=== PATIENT | female | born 1995 | race American Indian/Alaskan Native ===

== ENCOUNTER 2018-03-21 18:09 | Inpatient (IN) | payer MEDICAID ==
[2018-03-21] MEDS ORDERED: POLYCILLIN/NS 2 GM/100 ML 2 GM/100 ML BAG IV ONE (21:20)
[2018-03-21] MEDS ORDERED: SUBLIMAZE IV PRN ×2 (21:20→22:19)
[2018-03-21] MEDS ORDERED: STADOL IV PRN ×2 (21:20→22:19)
[2018-03-21] MEDS ORDERED: CERVIDIL VG ONE (21:27)
[2018-03-21 21:49] LABS: Hematocrit 37.1 % (30.3-42.9); Hemoglobin 11.7 gm/dl (10.1-14.3); Mean Corpuscular HGB Conc 32 % (30-34); Mean Corpuscular Volume 83 fl (79-97); Platelet Count 195 K/mm3 (140-440); Red Blood Count 4.49 M/mm3 (3.65-5.03); Red Cell Distribution Width 16.2 % (13.2-15.2)
[2018-03-21 21:50] LABS: Mean Corpuscular Hemoglobin 26 pg (28-32)
[2018-03-21] MEDS ORDERED: LACTATED RINGERS 1,000 ML IV SCH ×2 (22:00→23:00)
[2018-03-21] MEDS ORDERED: AMBIEN ONE (22:04)
[2018-03-21] MEDS ORDERED: AMBIEN PO PRN (22:06)
[2018-03-21] MEDS ORDERED: NARCAN 0.4 MG/1 ML IV PRN (22:19)
[2018-03-21] MEDS ORDERED: MINERAL OIL PO PRN (22:19)
[2018-03-21] MEDS ORDERED: XYLOCAINE 2% INFILTRATI ONE (22:19)
[2018-03-21] MEDS ORDERED: BRETHINE IVP PRN (22:19)
[2018-03-21] MEDS ORDERED: ePHEDrine SULFATE IV PRN (22:19)
[2018-03-21] MEDS ORDERED: BRETHINE SUB-Q PRN (22:19)
[2018-03-21] MEDS ORDERED: ZOFRAN IV PRN (22:19)
[2018-03-21] MEDS ORDERED: PITOCin/NS 20 UNIT/1000ML DRIP 20 UNITS/1,000 ML BAG IV SCH (23:00)
[2018-03-22] MEDS ORDERED: AMPICILLIN/NS 1 GM/50 ML 1 GM/50 ML BAG IV SCH (02:00)
--- NOTE | 2018-03-22 08:28 | History and Physical Report ---
History of Present Illness Date of examination: 03/22/18 Date of admission: 03/21/18 18:40 Chief complaint: sent from the office for induction History of present illness: Pt is a 22 year old AUSTEN 03/17/18 at 40w5d who presented for induction of labor on 03/21/18 secondary to oligohydramnios. She denies vaginal bleeding or leakage of fluid. She has care at [facility] since transfer into care at 23 weeks complicated by morbid obesity, anxiety, insomnia , gonorrhea treated with negative test of cure, limited anatomy scan with normal follow up scan, and GBS positive status. 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: gonorrhea (this , treated with negative test of cure ) Family/Genetic History: diabetes, heart disease, hypertension Social history: no significant social history - Obstetrical History Expected Date of Delivery: 03/17/18 Actual Gestation: 40 Week(s) 6 Day(s) : 2 Para: 0 Hx # Term Pregnancies: 0 Number of Pregnancies: 0 Spontaneous Abortions: 0 Induced : 1 Number of Living Children: 0 Medications and Allergies Allergies Allergy/AdvReac Type Severity Reaction Status Date / Time No Known Allergies Allergy Unverified 03/21/18 19:40 Home Medications Medication Instructions Recorded Confirmed Last Taken Type Plus Tablet 1 tab PO DAILY 03/22/18 03/22/18 03/19/18 11:00 History Active Meds: Active Medications Butorphanol Tartrate (Stadol) 2 mg IV Q2H PRN PRN Reason: Pain , Severe (7-10) Ephedrine Sulfate (Ephedrine Sulfate) 10 mg IV Q2M PRN PRN Reason: Hypotension Fentanyl (Sublimaze) 100 mcg IV Q2H PRN PRN Reason: Labor Pain Fentanyl (Sublimaze) 100 mcg IV Q2H PRN PRN Reason: Labor Pain Lactated Ringer's (Lactated Ringers) 1,000 mls @ 125 mls/hr IV DIRECT MICH Ampicillin Sodium (Ampicillin/Ns 1 Gm/50 Ml) 1 gm in 50 mls @ 100 mls/hr IV Q4HR MICH; Protocol Oxytocin/Sodium Chloride (Pitocin/Ns 20 Unit/1000ml Drip) 20 units in 1,000 mls @ 125 mls/hr IV DIRECT MICH Oxytocin/Sodium Chloride (Pitocin/Ns 30 Unit/500ml) 30 units in 500 mls @ 4 mls /hr IV TITR MICH; Protocol Mineral Oil (Mineral Oil) 30 ml PO QHS PRN PRN Reason: Constipation Naloxone HCl (Narcan 0.4 Mg/1 Ml) 0.1 mg IV Q2MIN PRN PRN Reason: Res Rate </= 8 or 02 SAT < 92% Ondansetron HCl (Zofran) 4 mg IV Q8H PRN PRN Reason: Nausea And Vomiting Terbutaline Sulfate (Brethine) 0.25 mg SUB-Q ONCE PRN PRN Reason: Hyperstimulation/Hypertonicity Terbutaline Sulfate (Brethine) 0.25 mg IVP ONCE PRN PRN Reason: Hyperstimulation/Hypertonicity Zolpidem Tartrate (Ambien) 10 mg PO QHS PRN PRN Reason: Insomnia Review of Systems All systems: negative - Vital Signs Vital signs: Vital Signs Pulse BP 89 125/60 03/21/18 19:57 03/21/18 19:57 Temp Pulse Resp BP Pulse Ox 97.6 F 89 18 87/49 03/22/18 07:42 03/22/18 07:46 03/22/18 07:42 03/22/18 07:46 - Physical Exam Breasts: Positive: deferred Cardiovascular: Regular rate Lungs: Positive: Clear to auscultation Abdomen: Positive: soft (obese, gravid ) Genitourinary (Female): Positive: normal external genitalia Uterus: Positive: enlarged (gravid ) Extremities: Positive: normal - Obstetrical FHR: category 2 Uterine Contraction Monitor Mode: External Cervical Dilatation: 0.5 Cervical Effacement Percentage: 30 station: -3 Uterine Contraction Pattern: Absent Uterine Tone Measurement Phase: Resting Results Result Diagrams: 03/21/18 20:25 Abnormal lab results 03/21/18 Range/Units 20:25 MCH 26 L (28-32) pg RDW 16.2 H (13.2-15.2) % All other labs normal. Assessment and Plan A: IUP at 40w5d Oligohydramnios Morbid Obesity GBS positive status P: Admit to labor and delivery for induction of labor. GBS prophylaxis Routine intrapartum care
[2018-03-22] MEDS: PITOCin/NS 30 UNIT/500ML 30 UNITS/500 ML BAG IV SCH ×7 (12:09→23:28)
[2018-03-22] MEDS ORDERED: POLYCILLIN/NS 2 GM/100 ML 2 GM/100 ML BAG IV ONE (17:58)
--- NOTE | 2018-03-22 23:45 | Event Note ---
Date: 03/22/18 Pt uncomfortable. FHTs with non-recurrent lates. SVE: /3. Pause pitocin for 30 minutes then restart. If FHT show intolerance to labor remote from delivery, plan to proceed with section.
[2018-03-23] MEDS: PITOCin/NS 30 UNIT/500ML 30 UNITS/500 ML BAG IV SCH ×2 (00:14→00:36)
[2018-03-23] MEDS ORDERED: REGLAN IV ONE (00:55)
[2018-03-23] MEDS ORDERED: BICITRA PO ONE (00:55)
[2018-03-23] MEDS ORDERED: PEPCID IV ONE (00:55)
--- NOTE | 2018-03-23 00:56 | Event Note ---
Date: 03/23/18 Pitocin restarted and pt continues to have late decelerations on FHTs remote from delivery. Decision to proceed with primary section.
[2018-03-23] MEDS ORDERED: NEO SYNEPHRINE/NS Syringe(OR USE) IV ONE (01:00)
[2018-03-23] MEDS ORDERED: ANCEF/STERILE WATER 2 GM/20 ML 2 GM/20 ML SYRINGE IV NR (01:00)
[2018-03-23] MEDS ORDERED: LACTATED RINGERS 1,000 ML IV SCH (01:00)
[2018-03-23] MEDS ORDERED: REGLAN ONE (01:00)
[2018-03-23] MEDS ORDERED: PITOCin/NS 20 UNIT/1000ML DRIP 20 UNITS/1,000 ML BAG IV SCH ×2 (01:00→06:43)
[2018-03-23] MEDS ORDERED: ZOFRAN IV PRN ×2 (01:14→06:43)
[2018-03-23] MEDS ORDERED: NARCAN 0.4 MG/1 ML IV PRN ×2 (01:14→06:43)
[2018-03-23] MEDS ORDERED: SUBLIMAZE ONE (01:26)
[2018-03-23] MEDS ORDERED: WATER FOR IRRIG STERILE IR ONE (01:30)
[2018-03-23] MEDS ORDERED: NACL 0.9% IR ONE (01:30)
[2018-03-23] MEDS ORDERED: SODIUM CHLORIDE FLUSH SYRINGE 10 ML IV NR ×2 (02:00→06:43)
--- NOTE | 2018-03-23 02:59 | Procedure Note ---
OB Delivery Note - Delivery Date of Delivery: 03/23/18 Surgeon: CHAD ROBLERO Estimated blood loss: other (700 mL) - Section Preop diagnosis: nonreassuring FHR tracing Postop diagnosis: same section procedure: section, primary low transverse Disposition: PACU Complications: none Narrative: Please see operative report. - A at 1 minute: 8 at 5 minutes: 9 Gender: Male (3568g (7lb 14 oz) @ 0214 am)
--- NOTE | 2018-03-23 03:04 | Operative Report ---
Operative Report Operative Report: Date of procedure: March 23, 2018 Preoperative diagnosis: 1) IUP at 40w6d 2) Nonreassuring status- repetitive lates 3) Oligohydrmanios 4) Morbid Obesity BMI 49 Postoperative diagnosis: Same Procedure: Primary low transverse section Surgeon: Stacy Dominguez M.D. Anesthesia: Spinal Findings: 1) Viable male , Apgars 8 and 9, weight 3568g, (7 lb 14 oz) in cephalic presentation. Nuchal cord x 1. Thick meconium 2) Normal-appearing uterus ovaries and tubes Estimated blood loss: 700 mL IV fluids: 1200 mL Urine output: 10 mL, clear at the end of the procedure Drains: Richardson to gravity Complications: None Disposition: Stable to PACU Indication for procedure: Pt is a 22 year old female at 40w6d admitted for induction of labor secondary to oligohydramnios who had virtually no cervical change and repetitive lates on the tracing. The decision was made to proceed with section. Operation in detail: After the risks, benefits, alternatives and complications were explained to the patient she gave informed consent for the procedure. She was subsequently taken to the operating room where spinal anesthesia was noted to be adequate. She was subsequently placed in the dorsal supine position with leftward tilt and prepped and draped in a normal sterile fashion. heart tones were noted to be in the 135s prior to incision. A timeout was performed. A Pfannenstiel skin incision was made with the knife and carried down to the layer of the fascia with the Bovie. The fascia was incised in the midline and the fascial incision was extended bilaterally with the Bovie. Attention was then turned to the superior aspect of the incision which was grasped with two Kochers, tented up, and dissected off the rectus muscles. Attention was then turned to the inferior aspect of the incision which was grasped with two Kochers , tented up and dissected off the rectus muscles. The rectus muscles were then in the midline and partially transected for adequate visualization. The peritoneum was then entered bluntly. The peritoneal incision was extended with good visualization of the bladder. The peritoneal incision was then stretched. An Avelino self-retaining retractor was placed for visualization. The bladder blade was placed. The vesicouterine peritoneum was grasped with smooth pickups and incised with Metzenbaum scissors. Metzenbaum scissors were used to extend the incision bilaterally. The bladder flap was then created digitally and the bladder blade was replaced. A transverse incision was made in the lower uterine segment with a knife and extended bilaterally with the bandage scissors. The head was delivered without difficulty followed by shoulders and body. was bulb suctioned at delivery. The cord was clamped and cut and the was handed to NICU staff in attendance. The placenta was then delivered manually. The uterus was then exteriorized and cleared of all clots and debris. The hysterotomy was then reapproximated with 0 Vicryl in a running locked fashion. A second layer of the same suture was used in imbricating fashion. The hysterotomy was inspected and hemostasis was noted. The Avelino self-retaining retractor was removed. The gutters were irrigated and cleared of all clots and debris. The hysterotomy was again inspected and noted to be hemostatic. Surgicel was placed over the hysterotomy. The peritoneum was reapproximated with 2-0 Vicryl in a running fashion incorporating the rectus muscles. Surgicel was placed over the cut surfaces of the rectus muscles. The fascia was reapproximated with 0 Vicryl in a running fashion. The subcuitaneous tissue was reapproximated with 3-0 Vicryl in a running fashion. The skin was reapproximated with 4-0 Vicryl in a subcuticular fashion. The incision was then covered with steri strips and a pressure dressing. The procedure was then ended. The patient tolerated the procedure well and was taken to the PACU in stable condition. All instrument, lap, and needle counts were correct 3.
[2018-03-23] MEDS: DILAUDID IV PRN ×3 (03:33→04:19)
[2018-03-23] MEDS ORDERED: SUBLIMAZE IV ONE (04:30)
[2018-03-23] MEDS: TORADOL IV PRN ×2 (05:01→11:14)
[2018-03-23] MEDS ORDERED: MILK OF MAGNESIA PO PRN (06:43)
[2018-03-23] MEDS ORDERED: MYLICON PO PRN (06:43)
[2018-03-23] MEDS ORDERED: TUCKS PAD TP PRN (06:43)
[2018-03-23] MEDS ORDERED: D5LR 1,000 ML IV SCH (06:43)
[2018-03-23] MEDS ORDERED: LANSINOH TP PRN (06:43)
[2018-03-23] MEDS ORDERED: TYLENOL PO PRN (06:43)
[2018-03-23] MEDS ORDERED: ANCEF/NS 1 GM/50 ML 1 GM/50 ML BAG IV SCH (06:43)
[2018-03-23] MEDS ORDERED: TORADOL IV PRN (06:43)
[2018-03-23] MEDS: FEOSOL PO SCH (10:28)
[2018-03-23] MEDS: ceFAZolin 1 GM in NACL 0.9% 20 ML IV SCH ×2 (10:28→18:17)
[2018-03-23 16:23] LABS: Hematocrit 32.5 % (30.3-42.9); Hemoglobin 10.7 gm/dl (10.1-14.3)
[2018-03-23] MEDS: PERCOCET 5/325 PO PRN ×2 (17:01→23:59)
[2018-03-23] MEDS: MOTRIN PO PRN (23:58)
[2018-03-24] MEDS: PERCOCET 5/325 PO PRN ×3 (05:33→21:07)
[2018-03-24] MEDS: MOTRIN PO PRN ×3 (05:33→18:22)
[2018-03-24] MEDS ORDERED: M-M-R II VACCINE SUB-Q ONE (06:00)
[2018-03-24] MEDS ORDERED: BOOSTRIX IM ONE (06:00)
--- NOTE | 2018-03-24 12:10 | Progress Note ---
Assessment and Plan A: POD#1 s/p primary at term P: Routine care. Subjective - Subjective Date of service: 03/24/18 Principal diagnosis: s/p primary Interval history: No overnight events. Patient reports: appetite normal, voiding normally, pain well controlled, flatus , ambulating normally, no bowel movement, no nauseated [place]: doing well Objective - Vital Signs Latest vital signs: Vital Signs Temp Pulse Resp BP BP Pulse Ox 03/24/18 08:00 114/56 03/24/18 07:55 97/36 03/24/18 07:51 97.5 F L 75 18 81/27 98 03/24/18 06:33 18 03/24/18 05:33 18 03/24/18 00:59 18 03/24/18 00:58 18 03/24/18 00:05 97.9 F 86 20 111/54 99 03/23/18 23:59 18 03/23/18 23:58 18 03/23/18 19:37 98.5 F 92 H 20 111/50 97 Intake and Output 03/23/18 03/24/18 03/24/18 22:59 06:59 14:59 Intake Total 960 240 Output Total 1400 Balance -440 240 Intake: Oral 720 Intake, Free Water 240 240 Output: Urine 1400 Void 1400 Other: Total, Intake Amount 720 Total, Output Amount 1400 # Voids Void 1 1 - Exam Breasts: Present: deferred Cardiovascular: Present: Regular rate Lungs: Present: Clear to auscultation Abdomen: Present: soft (obese ), abnormal bowel sounds (hypoactive ) Uterus: Present: fundal height below umbilicus Extremities: Present: normal Incision: Present: dressed
[2018-03-24] MEDS: FEOSOL PO SCH (12:15)
[2018-03-24] MEDS: MILK OF MAGNESIA PO SCH (16:15)
[2018-03-24] MEDS ORDERED: TRIPLE ANTIBIOTIC TP ONE (22:59)
[2018-03-25] MEDS ORDERED: TRIPLE ANTIBIOTIC TP ONE (01:36)
--- NOTE | 2018-03-25 08:22 | Progress Note ---
Assessment and Plan POD#2 s/p primary csec doing well vss continue routine Postop orders consider d/c home tomorrow Subjective - Subjective Date of service: 03/25/18 Principal diagnosis: s/p primary Patient reports: appetite normal, voiding normally, pain well controlled, flatus , ambulating normally [place]: doing well Objective - Vital Signs Latest vital signs: Vital Signs Temp Pulse Resp BP BP Pulse Ox 03/25/18 00:00 98.7 F 66 18 121/69 03/24/18 17:51 97.7 F 92 H 20 112/48 93 - Exam Breasts: Present: normal Cardiovascular: Present: Regular rate, Normal S1 Lungs: Present: Clear to auscultation, Normal air movement Abdomen: Present: normal appearance, soft, normal bowel sounds. Absent: distention, tenderness, guarding Vulva: both: normal Uterus: Present: normal, firm, fundal height below umbilicus. Absent: bogginess , tenderness Extremities: Present: normal Deep Tendon Reflex Grade: Normal +2 Incision: Present: normal, dry, intact
[2018-03-25] MEDS: PERCOCET 5/325 PO PRN ×2 (09:50→17:05)
[2018-03-25] MEDS: MILK OF MAGNESIA PO SCH ×2 (09:54→17:42)
[2018-03-25] MEDS: MOTRIN PO PRN ×2 (12:54→19:58)
[2018-03-25] MEDS ORDERED: TRIPLE ANTIBIOTIC TP SCH (16:00)
[2018-03-26] MEDS: PERCOCET 5/325 PO PRN ×2 (00:17→10:21)
[2018-03-26] MEDS: MOTRIN PO PRN (05:04)
[2018-03-26] MEDS ORDERED: BOOSTRIX IM ONE (06:00)
--- NOTE | 2018-03-26 08:34 | Progress Note ---
Assessment and Plan - Patient Problems (1) delivery delivered Current Visit: Yes Status: Acute Plan to address problem: patient doing well discharge home Subjective - Subjective Date of service: 03/26/18 Principal diagnosis: s/p primary Interval history: Patient without complaints. Tolerating regular diet. Pain well controlled. Patient desires an enema Patient reports: appetite normal, voiding normally, pain well controlled : doing well Objective - Vital Signs Latest vital signs: Vital Signs Temp Pulse Resp BP BP Pulse Ox 03/26/18 07:47 97.9 F 76 18 95/44 96 03/26/18 05:04 20 03/26/18 00:25 97.9 F 87 18 124/66 03/26/18 00:17 18 03/25/18 19:58 20 03/25/18 16:50 98.3 F 82 20 122/61 03/25/18 09:05 98.3 F 87 18 105/34 Intake and Output 03/25/18 03/26/18 03/26/18 22:59 06:59 14:59 Intake Total 360 480 Balance 360 480 Intake: Oral 360 Intake, Free Water 480 Other: Total, Intake Amount 360 # Voids Void 1 1 - Exam Abdomen: Present: normal appearance, soft Uterus: Present: normal, firm
--- NOTE | 2018-03-26 08:38 | Discharge Summary ---
Providers - Providers Date of Admission: 03/21/18 18:40 Date of discharge: 03/26/18 Attending physician: CHAD TALBERT 03/23/18 06:43 Consult to [employer] Representative [CONS] Routine Reason For Exam: Primary care physician: CHAD TALBERT Hospitalization Reason for admission: induction of labor Delivery: Procedure: section, primary low transverse Incision: normal Discharge diagnosis: IUP at term delivered [place] baby: male Hospital course: Patient underwent induction of labor for oligo. Intrapartum complicated by non- reassuring tracing. Patient underwent a primary delivery. Postop uncomplicated Condition at discharge: Good Disposition: DC-01 TO HOME OR SELFCARE - Discharge Diagnoses (1) delivery delivered Status: Acute Plan - Discharge Medications Prescriptions: Ibuprofen [Motrin] 800 mg PO Q8HR PRN #30 tablet PRN Reason: Pain oxyCODONE /ACETAMINOPHEN [Percocet 5/325] 1 tab PO Q6HR PRN #40 tablet PRN Reason: Pain - Provider Discharge Summary Activity: no sex for 6 weeks, no heavy lifting 4 weeks, no strenuous exercise Diet: routine Instructions: routine Additional instructions: [] Smoking cessation referral if applicable(refer to patient education folder for contact #) [] Refer to [facility] Booklet Call your doctor immediately for: * Fever > 100.5 * Heavy vaginal bleeding ( >1 pad per hour) * Severe persistent headache * Shortness of breath * Reddened, hot, painful area to leg or breast * Drainage or odor from incision. * Keep incision clean and dry at all times and follow doctor's instructions regarding bathing/showering followup with dr talbert in 2 weeks - Follow up plan
[2018-03-26] MEDS ORDERED: DULCOLAX PR PRN (10:00)
[2018-03-26] MEDS: FEOSOL PO SCH (10:21)
[2018-03-26 12:00] VITALS: BP 127/62
== END 2018-03-26 12:45 | disposition home or self-care (01) | DRG 765 ==
LOC: TRG 18:09 → LD 18:40 → OB 03-23 06:05
PROVIDERS: ADMIT Obstetrics & Gynecology; ATTEND Obstetrics & Gynecology
PROC: 10D00Z1 Extraction of Products of Conception, Low, Open Approach (ICD-10-PCS; principal; 2018-03-23)
PROC: 3E0234Z Introduction of Serum, Toxoid and Vaccine into Muscle, Percutaneous Approach (ICD-10-PCS; 2018-03-23)
DX: O41.03X0 Oligohydramnios, third trimester, not applicable or unspecified (principal); Z68.42 Body mass index [BMI] 45.0-49.9, adult; O99.214 Obesity complicating childbirth; E66.01 Morbid (severe) obesity due to excess calories; O99.824 Streptococcus B carrier state complicating childbirth; O69.81X0 Labor and delivery complicated by cord around neck, without compression, not applicable or unspecified; O76 Abnormality in fetal heart rate and rhythm complicating labor and delivery; O77.0 Labor and delivery complicated by meconium in amniotic fluid; O99.344 Other mental disorders complicating childbirth; F41.9 Anxiety disorder, unspecified; Z3A.40 40 weeks gestation of pregnancy; Z37.0 Single live birth; Z71.3 Dietary counseling and surveillance; Z23 Encounter for immunization; Z83.3 Family history of diabetes mellitus; Z82.49 Family history of ischemic heart disease and other diseases of the circulatory system
CPT/HCPCS: 36415; 85014; 85018; 85027; 86592; 86850; 86900; 86901; 88307; 90715; A6250; J0290; J0690; J1170; J1885; J2370; J2590; J2765; J3010; J7120; J7121

== ENCOUNTER 2021-02-18 11:36 | Emergency (ER) | payer SELFPAY | END 2021-02-18 11:40 | disposition left against medical advice (07) | LOC: ED 11:36 | DX: Z53.21 Procedure and treatment not carried out due to patient leaving prior to being seen by health care provider (principal) ==